=== PATIENT | male | born 1975 | race Caucasian/White ===

== ENCOUNTER 2025-02-19 08:46 | Emergency (ER) | payer MEDICAID, SELFPAY ==
[2025-02-19 09:11] VITALS: BP 149/82; PULSE 100; RESP 16; TEMP 36.7; O2SAT 95; BMI 28.1
--- NOTE | 2025-02-19 09:13 | XR_ITS ---
Examination: CT cervical spine without contrast 2-D sagittal reconstructions 2-D coronal reconstructions 3-D reconstructions. Exam date and time:February 19, 2025, 0923 hours INDICATIONS: Onset neck pain beginning 2 days ago. CTDI:vol (mGy) 18.3. DLP: (mGycm) 418. Technique: Multiple 2 mm axial sections of the cervical spine have been obtained. The coronal and sagittal reconstructions have been obtained. 3-D reconstructions have been obtained. Low dose protocols were performed. One or more of the following dose reduction techniques were used; automated exposure control, adjustment of the mA and/or KV according to patient size, use of iterative reconstruction technique. Findings: Axial sections demonstrate intact base of the skull. C1 exhibit satisfactory relationship to the odontoid. No acute cervical vertebral body fracture seen. Alignment posterior spinous processes satisfactory. Moderate disc narrowing C6-C7 Moderate to advanced bilateral neural foraminal stenosis C6-C7 level Impression: No acute cervical fracture. Moderate degenerative disc disease C6-C7 with moderate to advanced bilateral neural foraminal stenosis at this level Consider elective MRI cervical spine without contrast follow-up
[2025-02-19] MEDS: KETOROLAC INJ 30 MG/ML VIAL IM (09:28)
--- NOTE | 2025-02-19 10:16 | EDNOTE_ITS ---
ED Neck Injury Pain RME/HPI General Chief Complaint: Neck Pain/Injury Stated Complaint: Right side neck pain X 2 months Time Seen by Provider: 02/19/25 08:51 Arrival date/time: 02/19/25 08:46 49-year-old male presents to the emergency department today for complaints of acute on chronic neck pain patient reports right-sided neck pain worse with movement Limitations: no limitations Related Data Previous Rx's ?Medication ?Instructions ?Recorded cyclobenzaprine 10 mg tablet 10 mg PO TID PRN muscle s pasm 10 02/19/25 days #30 tab-caps ibuprofen 800 mg tablet 800 mg PO TID PRN pain #30 t abs 02/19/25 Allergies Allergy/AdvReac Type Severity Reaction Status Date / Time No Known Drug Allergies Allergy Verified 02/19/25 08:51 Review of Systems Review of Systems Systems Reviewed: All systems reviewed, normal except as documented Constitutional Constitutional: Reports system reviewed and no additional complaints, except as documented, Denies fever(s) and Denies headache(s) Eyes Eyes: Reports system reviewed and no additional complaints, except as documented and Denies blurry vision ENT Ears, Nose, Mouth, and Throat: Reports system reviewed and no additional complaints, except as documented, Denies headache(s), Denies nasal congestion, Denies nasal discharge and Reports neck pain Cardiovascular Cardiovascular: Reports system reviewed and no additional complaints, except as documented, Denies chest pain and Denies dyspnea Respiratory Respiratory: Reports system reviewed and no additional complaints, except as documented, Denies chest congestion, Denies cough and Denies dyspnea Gastrointestinal Gastrointestinal: Reports system reviewed and no additional complaints, except as documented and Denies abdominal pain Musculoskeletal Musculoskeletal: Reports system reviewed and no additional complaints, except as documented, Denies deformity, Reports neck pain, Denies numbness, Reports stiffness and Denies tingling Integumentary/Breasts Skin/Breast: Reports system reviewed and no additional complaints, except as documented and Denies rash Neurologic Neurologic: Reports system reviewed and no additional complaints, except as documented, Reports as per HPI, Denies headache(s), Denies numbness and Denies tingling Past Medical History Social History SMOKING STATUS: Current every day smoker ED Exam General Limitations: Present no limitations General appearance: Present alert and in no apparent distress Head Head exam: Present atraumatic, normocephalic and normal inspection Eye Eye exam: Present normal appearance, PERRL and EOMI; Absent conjunctival injection ENT ENT exam: Present normal exam, normal oropharynx and mucous membranes moist Neck Neck exam: Present normal inspection, full ROM, trachea midline and tenderness; Absent meningismus, lymphadenopathy or thyromegaly Chest Chest inspection: Present normal inspection and symmetric chest wall rise Respiratory Respiratory exam: Present normal lung sounds bilaterally; Absent respiratory distress Cardiovascular Cardiovascular exam: Present regular rate, normal rhythm and normal heart sounds Abdominal Exam Abdominal exam: Present soft and normal bowel sounds Extremities Exam Extremities exam: Present normal inspection and full ROM Back Exam Back exam: Present normal inspection and full ROM Neurological Exam Neurological exam: Present alert, oriented X3 and CN II-XII intact Psychiatric Psychiatric exam: Present normal affect and normal mood Skin Skin exam: Present warm, dry, intact and normal color Course Quality Measures none Orders Category Date Time Status CT cervical spine wo con Stat Exams 02/19/25 09:13 Completed CYCLObenzaPRINE [Flexeril] Med 02/19/25 09:13 Discontinued 10 mg PO X1 ONE Ketorolac Inj [Toradol Inj] Med 02/19/25 09:13 Discontinued 30 mg IM X1 ONE Vital Signs Vital signs: Vital Signs Temperature 98.1 F 02/19/25 09:11 Pulse Rate 100 02/19/25 09:11 Respiratory Rate 16 02/19/25 09:11 Blood Pressure 149/82 H 02/19/25 09:11 Pulse Oximetry (%) 95 02/19/25 09:11 Oxygen Delivery Method Room Air 02/19/25 09:11 O2 saturation 95% room air within normal limits Neck Pain MDM Narrative MDM Narrative:: 49-year-old male presents to the emergency department today for complaints of acute on chronic neck pain patient reports right-sided neck pain worse with movement On exam patient well-appearing patient does not appear toxic no acute distress On exam patient has tenderness of right side of his neck Imaging obtained consistent with stenosis and degenerative disc disease Patient discharged home in no distress to follow-up with primary care doctor in the next 24 to 48 hours and for any worsening symptoms to return to the ER immediately Patient data External records reviewed:: [facility] previous records Clinical information provided by:: patient Social determinants that could affect healthcare access:: none Patient has the following chronic illnesses:: None How is presenting disease/condition affected by chronic disease/condition?: no chronic disease Evaluation data The following diagnostics were reviewed and interpreted by me:: radiology exam(s) Lab and/or radiology exams considered but not ordered:: Radiology obtain Interpretation Summary: Reviewed by me Medications / Prescriptions Medications or Prescriptions considered but not ordered:: Given Medication administrations:: Medication Administration History Discontinued Medications Cyclobenzaprine HCl (Cyclobenzaprine 5 Mg Tablet) 10 mg PO X1 ONE Stop: 02/19/25 09:14 Last Admin: 02/19/25 09:28 Dose: 10 mg Documented By: Ketorolac Tromethamine (Ketorolac Inj 30 Mg/Ml Vial) 30 mg IM X1 ONE Stop: 02/19/25 09:14 Last Admin: 02/19/25 09:28 Dose: 30 mg Documented By: Given Consultations Consultation(s) initiated? (list below): No Diagnosis Neck Differential Diagnosis: disc disorder of cervical region, whiplash injury to neck and other (DDD) Most likely diagnosis given after review of the tests above:: Cervical DDD Admission Indicated Admission indicated?: not indicated Admission Request Was there a request for admission?: No Disposition Plan Disposition Plan: Discharge Discharge Attestation Discharge Attestation: The patient and all family members were given an opportunity to ask questions and understood the discharge instructions. Discharge instructions specifically effects, indications for sooner follow up or return to the emergency department, and the expected course of current diagnosis. Patient condition: Stable Discharge Plan Plan Patient Disposition: HOME (Self Care) Discharge Disposition comment: Stable Prescriptions/Referrals Prescriptions/Med Rec: New cyclobenzaprine 10 mg tablet 10 mg PO TID PRN (Reason: muscle spasm) 10 Days Qty: 30 0RF ibuprofen 800 mg tablet 800 mg PO TID PRN (Reason: pain) Qty: 30 0RF Referrals: Dillon Joe PA-C [Primary Care Provider] - 02/21/25 Problem List Clinical Impression: DDD (degenerative disc disease), cervical, Cervical spinal stenosis Patient/Caregiver Discharge Instructions Education Materials: ED Neck Pain Additional Instructions: Please follow-up department care doctor request outpatient MRI for worsening symptoms or concerns return immediately Print Language: [place] Stand Alone Forms: Candace Award Info., Patient Portal Info Letter PA/COLLINS Supervising Physician PA/COLLINS Supervising Physician: Dr. longoria
== END 2025-02-19 11:40 | disposition home or self-care (01) ==
PROVIDERS: Emergency Provider Family Medicine; PCP Physician Assistant
DX: M48.02 Spinal stenosis, cervical region (principal); M50.30 Other cervical disc degeneration, unspecified cervical region
CPT/HCPCS: 72125; 96372; 99283; J1885; A9270